=== PATIENT | female | born 1980 | race Caucasian/White ===

== ENCOUNTER 2017-01-03 21:21 | Emergency (ER) | payer BC, MEDICAID, OTHER ==
[~2017-01-03] VITALS: Ht 177.8 cm; Wt 100.0 kg
[2017-01-03 21:23] VITALS: Ht 177.8 cm; Wt 100.0 kg
--- NOTE | 2017-01-03 21:26 | ERA ---
ER Documentation Chief Complaint Date/Time DATE: 01/03/17 TIME: 21:26 Chief Complaint CLARK right mu-ism x 2 hrs w/ blurred vision, vomit x3, numb tongue HPI The patient is a 36-year-old female, presenting to the ER because of right- sided headache, associated with blurred vision, numbness of the left second toe and fourth finger that began about 30 minutes ago. The headache is 7/10, she had similar symptoms previously. She complains of nausea and vomiting mostly mucus. He denies fever, chills, neck pain, chest pain, dyspnea, abdominal pain , vomiting, dysuria, diarrhea. She does not smoke, drinks socially. He is taking Keppra for prevent the seizure prevention Past medical history: History of AVM in 2012, history of brain aneurysm treated with laser in 2013 Past surgical history: One ROS All systems reviewed and are negative except as per history of present illness. Medications Home Meds Reported Medications Levetiracetam* (Keppra*) 500 Mg Tablet, 500 MG PO BID, TAB 01/03/17 Allergies Allergies: Coded Allergies: No Known Drug Allergies (Verified Allergy, Unknown, 01/03/17) Physical Exam Vitals Vital Signs Date Time Temp Pulse Resp B/P Pulse Ox O2 Delivery O2 Flow Rate FiO2 01/04/17 00:53 98.6 80 20 110/62 100 Room Air 01/03/17 23:30 98.7 86 20 106/62 100 Room Air 01/03/17 21:23 98.7 93 20 135/71 97 Physical Exam Const: No acute distress. Head: Atraumatic. Eyes: Normal Conjunctiva. ENT: Normal External Ears, Nose and Mouth. Neck: Full range of motion. No meningismus. Resp: Clear to auscultation bilaterally. Cardio: Regular rate and rhythm, no murmurs. Abd: Soft, non distended, normal bowel sounds, non tender. Skin: No petechiae or rashes. Back: No midline or flank tenderness. Ext: No cyanosis, or edema. Neur: Awake and alert. No focal deficit Psych: Normal Mood and Affect. Result Diagram: 01/03/17214401/03/172144 Results 24 hrs Laboratory Tests Test 01/03/17 21:44 01/03/17 21:45 01/03/17 21:51 Bedside Urine Blood Negative Bedside Urine Glucose (UA) Negative Bedside Urine Ketones (LAB) Negative Bedside Urine Leukocyte Esterase (L Negative Bedside Urine Nitrite (LAB) Negative Bedside Urine Protein (LAB) Negative Bedside Urine pH (LAB) 6.5 Activated Partial Thromboplast Time 26.9Sec Anion Gap 16 Basophils # 0.110^3/ul Basophils % 0.3% Blood Morphology Comment Blood Urea Nitrogen 12mg/dl Calcium Level 9.8mg/dl Carbon Dioxide Level 29mmol/L Chloride Level 102mmol/L Creatinine 0.80mg/dl Eosinophils # 0.510^3/ul Eosinophils % 2.7% Glucose Level 96mg/dl Hematocrit 37.7% Hemoglobin 12.8g/dl INR International Normalized Ratio 0.91 Lymphocytes # 2.110^3/ul Lymphocytes % 12.1% Mean Corpuscular Hemoglobin 28.9pg Mean Corpuscular Hemoglobin Concent 33.8g/dl Mean Corpuscular Volume 85.6fl Mean Platelet Volume 8.2fl Monocytes # 0.910^3/ul Monocytes % 5.4% Neutrophils # 14.010^3/ul Neutrophils % 79.5% Nucleated Red Blood Cells # 0.010^3/ul Nucleated Red Blood Cells % 0.0/100WBC Platelet Count 06142^3/UL Potassium Level 4.3mmol/L Prothrombin Time 12.3Sec Prothrombin Time Ratio 1.0 Red Blood Count 4.4110^6/ul Red Cell Distribution Width 12.4% Serum HCG, Qualitative NEGATIVE Sodium Level 143mmol/L White Blood Count 17.610^3/ul Bedside Glucose 91mg/dL Current Medications Medications (Trade) Dose Ordered Sig/Olivia Route PRN Reason Start Time Stop Time Status Last Admin Dose Admin Morphine Sulfate (morphine) 4 mg ONCE ONCE IV 01/03/17 22:52 01/03/17 22:53 DC 01/03/17 23:26 Ondansetron HCl (Zofran Inj) 4 mg ONCE ONCE IV 01/03/17 22:52 01/03/17 22:53 DC 01/03/17 23:23 Procedures/[address] [address] Radiology Main Line: [phone] DIAGNOSTIC IMAGING REPORT Patient: JUAN DILLON : 1980 Age: 36 Sex: F MR #: [id number] DOS: 01/03/172125 Ordering MD: IBRAHIMA MURILLO MD Location: E/R Room/Bed: PROCEDURE: CT Brain without contrast. CLINICAL INDICATION: Patient experiencing a headache. TECHNIQUE: A multiplanar CT of the brain was performed on a CT scanner utilizing axial imaging from the skull base through the vertex without IV contrast. Automated exposure control, adjustment of the mA and/or kV according to patient size, use of iterative reconstruction technique. COMPARISON: None FINDINGS: No intracranial hemorrhage. I am CSF density in the right middle cranial fossa likely representing arachnoid cyst. Imaging is limited due to axial views only. This would be best evaluated with MRI.. The brain parenchyma is otherwise normal attenuation morphology with preservation of ott white differentiation and age appropriate size of the ventricles and subarachnoid spaces. Lobulated mucosal thickening within the right anterior ethmoid air cells. The posterior fossa contents, brainstem, craniocervical junction, orbits, pituitary axis, remaining paranasal sinuses, mastoid air cells, and calvarium are unremarkable. IMPRESSION: 1. No intracranial hemorrhage or acute intracranial abnormality. 2. CSF density area in the right middle cranial fossa likely representing arachnoid cyst. MRI is recommended for further evaluation. RPTAT:AAJJ Physician Babrara Date Time Electronically viewed and signed by Physician Barbara on 01/03/2017 22:24 Y/ CC: IBRAHIMA MURILLO MD [place] [address] Radiology Main Line: [phone] DIAGNOSTIC IMAGING REPORT Patient: JUAN DILLON : 1980 Age: 36 Sex: F MR #: [id number] DOS: 01/03/172218 Ordering MD: IBRAHIMA MURILLO MD Location: E/R Room/Bed: PROCEDURE: XR Chest. CLINICAL INDICATION: Cough. TECHNIQUE: Single frontal chest x-ray. COMPARISON: None available. FINDINGS: The cardiomediastinal silhouette is unremarkable. No pneumothorax, pleural effusion or consolidation is seen. No acute osseous abnormality is noted. IMPRESSION: 1. No acute cardiopulmonary abnormality. RPTAT: HFN .Nunu Winchester MD, Date Time Electronically viewed and signed by .Nunu Winchester MD, MD on 01/03/2017 23: 14 .N/ CC: IBRAHIMA MURILLO MD EKG: Read by emergency physician Rate/Rhythm: Normal Sinus Rhythm 94 beats/min QRS, ST, T-waves: No ST elevation, no T inversion Impression: Normal EKG MEDICAL MAKING DECISION: The patient is a 36-year-old female, presenting with acute headache, concerning for brain AVM, brain aneurysm. She was treated with morphine 4 mg IV for pain, Zofran 4 mg IV for nausea with good response. The differential diagnoses considered include but are not limited to subarachnoid hemorrhage, occult trauma, CVA, meningitis, encephalitis, hypertension, tension , migraine, cluster, narcotic withdrawal, cervical spine disease. Departure Diagnosis: Primary Impression: Headache Condition: Stable Comments I discussed the findings with the patient. I discussed the patient with his physician Dr. Navarrete from [facility] who was made aware of the lab, the treatment, the patient condition. The patient is transferred to [facility] for further evaluation The patient's blood pressure was elevated (>120/80) but appears stable without evidence of hypertension emergency or urgency. The patient was counseled about the risks of hypertension and urged to pursue outpatient monitoring and therapy within a week after discharge with their primary care physician. IBRAHIMA MURILLO MD Jan 03, 2017 21:26
[2017-01-03] MEDS ORDERED: LEVE-5 PO (21:37)
[2017-01-03 21:42] LABS: URINE BLOOD (Dip) POC Negative (NEGATIVE)
[2017-01-03 22:05] LABS: BASOPHIL # 0.1 10^3/ul (0.0-0.1); BASOPHILS % 0.3 % (0.0-2.0); EOSINOPHILS # 0.5 10^3/ul (0.0-0.5); EOSINOPHILS % 2.7 % (0.0-7.0); HEMATOCRIT 37.7 % (37.0-47.0); HEMOGLOBIN 12.8 g/dl (12.0-16.0); LYMPHOCYTES # 2.1 10^3/ul (0.8-2.9); LYMPHOCYTES % 12.1 % (15.0-51.0); MEAN CORPUSCULAR HEMOGLOBIN 28.9 pg (29.0-33.0); MEAN CORPUSCULAR HGB CONC 33.8 g/dl (32.0-37.0); MEAN CORPUSCULAR VOLUME 85.6 fl (82.0-101.0); MEAN PLATELET VOLUME 8.2 fl (7.4-10.4); MONOCYTE # 0.9 10^3/ul (0.3-0.9); MONOCYTES % 5.4 % (0.0-11.0); NEUTROPHILS % 79.5 % (39.0-77.0); PLATELET COUNT 317 10^3/UL (140-440); RED BLOOD COUNT 4.41 10^6/ul (4.20-5.40); RED CELL DISTRIBUTION WIDTH 12.4 % (11.5-14.5); UNCORRECTED WBC 17.6 10^3/ul (4.8-10.8); WHITE BLOOD COUNT 17.6 10^3/ul (4.8-10.8)
[2017-01-03 22:06] LABS: CONDITION 1
[2017-01-03 22:13] LABS: POTASSIUM 4.3 mmol/L (3.5-5.1)
[2017-01-03 22:15] LABS: INR 0.91; PROTIME 12.3 Sec (12.2-14.2)
[2017-01-03 22:16] LABS: CREATININE 0.8 mg/dl (0.44-1.00); PARTIAL THROMBOPLASTIN TIME 26.9 Sec (25.0-35.0)
[2017-01-03 22:17] LABS: CALCIUM 9.8 mg/dl (8.4-10.2)
--- NOTE | 2017-01-03 22:24 | RADRPT ---
PROCEDURE: CT Brain without contrast. CLINICAL INDICATION: Patient experiencing a headache. TECHNIQUE: A multiplanar CT of the brain was performed on a CT scanner utilizing axial imaging fro m the skull base through the vertex without IV contrast. Automated exposure control, adjustment of t he mA and/or kV according to patient size, use of iterative reconstruction technique. COMPARISON: None FINDINGS: No intracranial hemorrhage. I am CSF density in the right middle cranial fossa likely representing a rachnoid cyst. Imaging is limited due to axial views only. This would be best evaluated with MRI.. The brain parenchyma is otherwise normal attenuation morphology with preservation of ott white diff erentiation and age appropriate size of the ventricles and subarachnoid spaces. Lobulated mucosal thickening within the right anterior ethmoid air cells. The posterior fossa contents, brainstem, craniocervical junction, orbits, pituitary axis, remaining paranasal sinuses, mastoid air cells, and calvarium are unremarkable. IMPRESSION: 1. No intracranial hemorrhage or acute intracranial abnormality. 2. CSF density area in the right middle cranial fossa likely representing arachnoid cyst. MRI is r ecommended for further evaluation. RPTAT:AAJJ Physician Barbara Date Time Electronically viewed and signed by Physician Barbara on 01/03/2017 22:24 Y/
[2017-01-03] MEDS ORDERED: ONDANSETRON 4 MG INJ IV ONE (22:52)
[2017-01-03] MEDS ORDERED: morphine 4 MG/ML VIAL IV ONE (22:52)
--- NOTE | 2017-01-03 23:14 | RADRPT ---
PROCEDURE: XR Chest. CLINICAL INDICATION: Cough. TECHNIQUE: Single frontal chest x-ray. COMPARISON: None available. FINDINGS: The cardiomediastinal silhouette is unremarkable. No pneumothorax, pleural effusion or consolidation is seen. No acute osseous abnormality is noted. IMPRESSION: 1. No acute cardiopulmonary abnormality. RPTAT: HFN .Nunu Winchester MD, MD Date Time Electronically viewed and signed by .Nunu Winchester MD, on 01/03/2017 23:14 .N/
[2017-01-04 00:53] VITALS: BP 110/62; PULSE 80; RESP 20; TEMP 98.6
== END 2017-01-04 00:56 | disposition short-term general hospital (02) ==
LOC: E/R 21:21
DX: R51 Headache (principal); R11.2 Nausea with vomiting, unspecified; R40.2142 Coma scale, eyes open, spontaneous, at arrival to emergency department; R40.2252 Coma scale, best verbal response, oriented, at arrival to emergency department; R40.2362 Coma scale, best motor response, obeys commands, at arrival to emergency department
CPT/HCPCS: 36415; 70450; 71010; 80048; 81003; 82962; 84703; 85025; 85610; 85730; 93005; 96374; 96375; J2270; J2405; Z7502

== ENCOUNTER 2017-12-09 12:15 | Emergency (ER) | END 2017-12-09 12:35 | disposition home or self-care (01) ==

== ENCOUNTER → 2018-02-22 | Outpatient (CLI) | END | disposition home or self-care (01) ==

== ENCOUNTER 2018-09-03 08:56 | Emergency (ER) | END 2018-09-03 11:39 | disposition home or self-care (01) ==

== ENCOUNTER 2019-02-01 22:23 | Emergency (ER) | payer BC ==
[~2019-02-01] VITALS: Ht 177.8 cm; Wt 111.4 kg
[~2019-02-01 22:23] MED LIST: ACET500C5 PO; BEN25 PO; CYCL10TA7 PO; LEVE-5 PO; LIDO700A29 TP; TRIA15CR55 TOP
[2019-02-01 22:40] VITALS: Ht 177.8 cm; Wt 111.4 kg
[2019-02-01] MEDS ORDERED: ONDANSETRON (ODT) 4 MG TAB ODT STA (22:56)
[2019-02-01] MEDS ORDERED: DEXAMETHASONE 10 MG/ML 1 ML INJ IM ONE (23:00)
[2019-02-01] MEDS ORDERED: DIPHENHYDRAMINE 50 MG CAP PO ONE (23:00)
[2019-02-01] MEDS ORDERED: FAMOTIDINE 20 MG TAB PO ONE (23:00)
--- NOTE | 2019-02-01 23:00 | ERD ---
ER Documentation Chief Complaint Chief Complaint BILAT ARM RASH X3HRS NO SOB NO WHEEZING HPI This is a 38-year-old female presents emergency department with complaints of rash, hives to bilateral upper extremities which started at around 8 PM today. Patient recalled that she only ate a hamburger at around 4 PM. LMP: LMP: 01/07/2019. A0. Denies headache, head injury, loss of consciousness, dizziness, neck pain, neck stiffness, throat pain, difficulty swallowing, difficulty breathing lying flat, shoulder pain, chest pain, back pain, abdominal pain, nausea, vomiting, constipation, diarrhea, urinary symptoms, or possibility being , loss of bowel and bladder control, trauma, injury, falls, difficulty walking due to pain, numbness or tingling sensation, calf pain, recent travel, recent major surgery in the last 3 weeks, calf pain, recent long travel, recent exposure to any illness, recent antibiotic use in the last 3 months, fever, chills, seizures. Past medical history: Hypertension. Medication: Metoprolol. Keppra. Surgical history: AVM to right temporal area. x1. Social: Denies smoking, use of alcoholic beverages, use of illegal drugs. ROS All systems reviewed and are negative except as per history of present illness. Medications Home Meds Active Scripts Ondansetron Hcl* (Zofran*) 4 Mg Tablet, 4 MG PO Q8H PRN for NAUSEA AND/OR VOMITING, #30 TAB Prov:LOLISWILBURROSLYN F 02/01/19 Epinephrine (Epipen 2-Arnoldo) 0.3 Mg/0.3 Ml Pen.injctr, 1 EA INJ ONCE PRN for ALLERGIC REACTION, #1 EA Prov:PASILABANWILBURROSLYN F 02/01/19 Loratadine* (Loratadine*) 10 Mg Tablet, 10 MG PO DAILY, #30 TAB Prov:PASILABANWILBURROSLYN F 02/01/19 Diphenhydramine Hcl* (Benadryl*) 25 Mg Cap, 25 MG PO Q6 PRN for ITCHING/RASH, #30 TAB Prov:PASILABANWILBURAR F 02/01/19 Famotidine* (Pepcid*) 20 Mg Tablet, 40 MG PO DAILY for 30 Days, TAB Prov:PASILABANFRANKLIN F 02/01/19 Lidocaine (Lidoderm) 1 Each Adh..patch, 1 EACH TP q24, #10 Prov:JUSTIN LOVING. SHABANA 09/03/18 Cyclobenzaprine Hcl* (Cyclobenzaprine Hcl*) 10 Mg Tablet, 10 MG PO TID, #15 TAB Prov:JUSTIN LOVING. FRONT END DRIVER 09/03/18 Acetaminophen* (Tylophen*) 500 Mg Capsule, 1 CAP PO Q6H PRN for PAIN AND OR ELEVATED TEMP, #20 CAP Prov:JUSTIN LOVING Anders. SHABANA 09/03/18 Triamcinolone Acetonide (Triamcinolone Acetonide) 0.1% - 15 Gm Cream.gm., 1 APPLIC TOP BID, #1 TUB Prov:RADHA LINDSAY PA-C 12/09/17 Diphenhydramine Hcl* (Benadryl*) 25 Mg Cap, 25 MG PO Q6, #30 CAP Prov:RADHA LINDSAY PA-C 12/09/17 Reported Medications Levetiracetam* (Keppra*) 500 Mg Tablet, 500 MG PO BID, TAB 01/03/17 Allergies Allergies: Coded Allergies: No Known Drug Allergies (Verified Allergy, Unknown, 02/01/19) PMhx/Soc History of Surgery: Yes (AVM IN BRAIN) Anesthesia Reaction: No Hx Neurological Disorder: Yes (BRAIN ANEURYSM) Hx Respiratory Disorders: No Hx Cardiac Disorders: No Hx Psychiatric Problems: No Hx Alcohol Use: No Hx Substance Use: No Hx Tobacco Use: No Smoking Status: Never smoker Physical Exam Vitals Physical Exam Const: No acute distress Head: Atraumatic Eyes: Normal Conjunctiva ENT: Normal External Ears, Nose and Mouth. Throat/mouth: No lip swelling. No facial swelling. No tongue swelling. Able to control tongue movement. Tolerating secretions. Uvula is midline nondisplaced. Tonsils are +1 bilaterally without redness without exudates. Tolerating secretions. Patent airway. Speaks full and clear sentences. Neck: Full range of motion. No meningismus. Resp: Clear to auscultation bilaterally. No accessory muscle use in breathing. Cardio: Regular rate and rhythm, no murmurs Abd: Soft, non tender, non distended. Normal bowel sounds Skin: No petechiae or rashes. Hives noted to bilateral upper extremities. Mild hives noted to anterior chest/neck area. Back: No midline or flank tenderness Ext: No cyanosis, or edema Neur: Awake and alert. No neurological deficits.. Psych: Normal Mood and Affect Results 24 hrs Current Medications Medications Dose Sig/Olivia Start Time Status Last (Trade) Ordered Route PRN Stop Time Admin Dose Reason Admin 10 mg ONCE ONCE 02/01/19 DC 02/01/19 Dexamethasone IM 23:00 23:18 (Decadron) 02/01/19 23:01 50 mg ONCE ONCE 02/01/19 DC 02/01/19 Diphenhydrami PO 23:00 23:18 ne HCl 02/01/19 23:01 (Benadryl) Ondansetron 4 mg ONCE STAT 02/01/19 DC 02/01/19 HCl (Zofran ODT 22:56 23:18 Odt) 02/01/19 22:57 Famotidine 40 mg ONCE ONCE 02/01/19 DC 02/01/19 (Pepcid) PO 23:00 23:18 02/01/19 23:01 Procedures/MDM Diagnostic tests: Clinical exam. Treatment: Dexamethasone IM. Pepcid p.o. Benadryl p.o. Zofran ODT. Re-evaluation: Hives has decreased tremendously. No drooling. Tolerating secretions. Patent airway. No signs of angioedema. Respirations even and unlabored. No accessory muscle use in breathing. Lungs are clear to auscultation. Differential diagnosis I have low suspicion for anaphylactic shock, angioedema, bronchospasm, airway obstruction. Final diagnosis: Allergic reaction. Hives. Prescription: EpiPen. Benadryl. Pepcid. Zofran. Claritin. Follow-up with PCP in the next 24-48 hours. PCP to do an allergy test for environmental and food. PCP to refer patient to client account specialist and/or juvenile detention officer. Come back here in the emergency department for any new symptoms or any worsening symptoms. All questions and concerns were answered. Patient and family members verbalized understanding and agreed with plan of care. Hemodynamically stable on discharge. Departure Diagnosis: Primary Impression: Rash Additional Impressions: Hives Allergic reaction Condition: Stable Additional Instructions: Follow-up with PCP in the next 24-48 hours. PCP to do an allergy test for environmental and food. PCP to refer patient to client account specialist and/or juvenile detention officer. Come back here in the emergency department for any new symptoms or any worsening symptoms. FRANKLIN DANIELLE Feb 01, 2019 23:00
[2019-02-01] MEDS ORDERED: LORA10TA3 PO (23:06)
[2019-02-01] MEDS ORDERED: ONDA4TAB8 PO (23:06)
[2019-02-01] MEDS ORDERED: BEN25 PO (23:06)
[2019-02-01] MEDS ORDERED: FAMO-96 PO (23:06)
[2019-02-01] MEDS ORDERED: EPIN0.3P4 INJ (23:06)
[2019-02-01 23:25] VITALS: BP 131/73; PULSE 85; RESP 20
== END 2019-02-01 23:30 | disposition home or self-care (01) ==
LOC: E/R 22:23 → FTE 23:30
DX: L50.0 Allergic urticaria (principal); I10 Essential (primary) hypertension
CPT/HCPCS: 96372; J1100

== ENCOUNTER → 2019-07-26 | Outpatient (CLI) | payer BC ==
[~2019-07-26] MED LIST changes: +EPIN0.3P4 INJ; +FAMO-96 PO; +LORA10TA3 PO; +ONDA4TAB8 PO
== END | disposition home or self-care (01) ==
LOC: U/S 11:03
PROVIDERS: ATTEND Family Medicine
DX: E01.0 Iodine-deficiency related diffuse (endemic) goiter (principal)
CPT/HCPCS: 76536